=== PATIENT | female | born 1975 | race Caucasian/White ===

== ENCOUNTER 2020-10-06 14:20 | Inpatient (IN) ==
[2020-10-06] MEDS ORDERED: SODIUM CHLORIDE 0.9% 1,000 ML IV STA (17:24)
[2020-10-06] MEDS ORDERED: MORPHINE 4 MG/1 ML VIAL IV ONE ×2 (17:27→21:21)
[2020-10-06] MEDS ORDERED: ONDANSETRON 4 MG/2 ML VIAL IV STA ×3 (17:27→21:21)
[2020-10-06] MEDS ORDERED: PANTOPRAZOLE 40 MG VIAL IV STA (17:28)
[2020-10-06 19:03] LABS: Basophils # 0.1 10*3/uL (0.0-0.2); Basophils % 0.3 % (0.0-0.8); Eosinophils # 0.1 10*3/uL (0.0-0.87); Eosinophils % 0.3 % (0.00-10.9); Hematocrit 43.2 VOL% (35.7-47.0); Hemoglobin 15.1 GM/DL (12.0-16.0); Immature Granulocytes % 0.3 %; Immature Granulocytes Absolute 0.05 #; Lymphocytes # 1.3 10*3/uL (1.4-4.0); Lymphocytes % 7.9 % (21.3-54.2); Mean Corpuscular Volume 86.1 FL (87-102); Neutrophils % 88.2 % (38.7-73.9); Platelet Count 258 T/CUMM (130-400); Red Blood Count 5.02 MC/CUMM (3.8-5.5); Red Cell Distribution Width 12.2 % (9.3-17.3); White Blood Count 16.8 T/CUMM (4-12)
[2020-10-06 19:18] LABS: INR 1.1; PT Patient Result 11.4 SECS (9.8-11.9)
[2020-10-06 19:24] LABS: Albumin 3.7 G/DL (3.4-5.0); Bilirubin,Total 0.5 MG/DL (0.2-1.0); Calcium 8.9 MG/DL (8.5-10.1); Total Protein 8.1 G/DL (6.4-8.3)
[2020-10-06 20:20] LABS: Bacteria,Urine Occasional /HPF (Few); Bilirubin,Urine Negative (Negative); Blood, Urine Negative (Negative); Glucose,Urine (UA) Negative (Negative); Ketones,Urine 20 mg/dL (Negative); Mucus,Urine Occasional /LPF (Occasional); Nitrite,Urine Positive (Negative); Protein,Urine Negative; RBC,Urine 14 /HPF (0-4); Squamous Epithelial Cell,Urine Few /HPF (0-10); Urine Appearance CLEAR (Clear); Urine Color Yellow (Yellow); Urine Specific Gravity > 1.060 (1.001-1.035); Urine Urobilinogen < 2.0 EU/DL (0.2-1.0); WBC,Urine 15 /HPF (0-6)
[2020-10-06] MEDS ORDERED: DEXTROSE 50% 25 GM/50 ML VIAL IV PRN (21:23)
[2020-10-06] MEDS ORDERED: ACETAMINOPHEN 325 MG TABLET PO PRN (21:23)
[2020-10-06] MEDS ORDERED: GLUCAGON 1 MG VIAL IM PRN (21:23)
[2020-10-06] MEDS ORDERED: HYDROmorphone 2 MG/1 ML VIAL IV PRN (21:31)
[2020-10-06] MEDS: CIPROFLOXACIN INJ 400 MG in PREMIX 1 EACH IV SCH (22:44)
[2020-10-06] MEDS: SODIUM CHLORIDE 0.9% 1,000 ML IV SCH (22:44)
[2020-10-06 23:40] LABS: Hematocrit 36.9 VOL% (35.7-47.0); Hemoglobin 12.9 GM/DL (12.0-16.0)
[2020-10-07] MEDS: ONDANSETRON 4 MG/2 ML VIAL IV PRN ×6 (00:07→20:59)
[2020-10-07] MEDS: metroNIDAZOLE INJ 500 MG in PREMIX 1 EACH IV SCH ×3 (00:11→16:09)
[2020-10-07 05:56] LABS: Basophils % 0.3 % (0.0-0.8); Eosinophils # 0.1 10*3/uL (0.0-0.87); Eosinophils % 1.4 % (0.00-10.9); Hematocrit 33.4 VOL% (35.7-47.0); Hemoglobin 11.4 GM/DL (12.0-16.0); Immature Granulocytes % 0.3 %; Immature Granulocytes Absolute 0.03 #; Lymphocytes # 1.8 10*3/uL (1.4-4.0); Lymphocytes % 18.4 % (21.3-54.2); Mean Corpuscular HGB Conc 34.1 GM/DL (32-36); Mean Corpuscular Volume 87.9 FL (87-102); Mean Platelet Volume 10.1 FL (9.6-12.0); Monocytes % 5.9 % (1.7-12.7); Neutrophils % 73.7 % (38.7-73.9); Platelet Count 216 T/CUMM (130-400); Red Cell Distribution Width 12.1 % (9.3-17.3); White Blood Count 9.6 T/CUMM (4-12)
[2020-10-07 05:56] LABS: Hematocrit 34.4 VOL% (35.7-47.0); Hemoglobin 11.5 GM/DL (12.0-16.0)
[2020-10-07 06:30] LABS: Albumin 2.8 G/DL (3.4-5.0); Bilirubin,Total 0.6 MG/DL (0.2-1.0); Calcium 7.7 MG/DL (8.5-10.1); Osmolality,Calculated 271.7 MOS/KG (273-304); Total Protein 6.1 G/DL (6.4-8.3)
[2020-10-07] MEDS: PANTOPRAZOLE 40 MG VIAL IV SCH ×2 (08:15→20:59)
[2020-10-07] MEDS: SODIUM CHLORIDE 0.9% 1,000 ML IV SCH ×3 (08:16→22:30)
[2020-10-07] MEDS: CIPROFLOXACIN INJ 400 MG in PREMIX 1 EACH IV SCH ×2 (09:32→22:30)
[2020-10-07 10:34] LABS: Hematocrit 31.8 VOL% (35.7-47.0); Hemoglobin 11.2 GM/DL (12.0-16.0)
[2020-10-07 15:22] LABS: Hematocrit 33.6 VOL% (35.7-47.0); Hemoglobin 11.5 GM/DL (12.0-16.0)
[2020-10-07] MEDS ORDERED: POTASSIUM CHLORIDE 8 MEQ CAPSULE PO ONE (17:36)
[2020-10-08] MEDS: ONDANSETRON 4 MG/2 ML VIAL IV PRN ×4 (00:33→13:21)
[2020-10-08] MEDS: metroNIDAZOLE INJ 500 MG in PREMIX 1 EACH IV SCH ×2 (00:33→09:18)
[2020-10-08] MEDS: SODIUM CHLORIDE 0.9% 1,000 ML IV SCH ×2 (05:49→09:15)
[2020-10-08 07:10] LABS: Basophils % 0.6 % (0.0-0.8); Eosinophils # 0.1 10*3/uL (0.0-0.87); Eosinophils % 2.1 % (0.00-10.9); Hematocrit 31.7 VOL% (35.7-47.0); Hemoglobin 10.9 GM/DL (12.0-16.0); Immature Granulocytes % 0.2 %; Immature Granulocytes Absolute 0.01 #; Lymphocytes # 1.9 10*3/uL (1.4-4.0); Lymphocytes % 36.1 % (21.3-54.2); Mean Corpuscular HGB Conc 34.4 GM/DL (32-36); Mean Corpuscular Volume 85.4 FL (87-102); Mean Platelet Volume 10.3 FL (9.6-12.0); Monocytes % 10.1 % (1.7-12.7); Neutrophils % 50.9 % (38.7-73.9); Platelet Count 213 T/CUMM (130-400); Red Blood Count 3.71 MC/CUMM (3.8-5.5); White Blood Count 5.3 T/CUMM (4-12)
[2020-10-08 07:43] LABS: Albumin 2.7 G/DL (3.4-5.0); Bilirubin,Total 0.6 MG/DL (0.2-1.0); Osmolality,Calculated 275.4 MOS/KG (273-304); Total Protein 5.8 G/DL (6.4-8.3)
[2020-10-08] MEDS ORDERED: POTASSIUM CHLORIDE 20 MEQ TABLET PO ONE (09:10)
[2020-10-08] MEDS: PANTOPRAZOLE 40 MG VIAL IV SCH (09:17)
[2020-10-08 11:16] VITALS: BP 144/82
[2020-10-08] MEDS: CIPROFLOXACIN INJ 400 MG in PREMIX 1 EACH IV SCH (13:22)
[2020-10-10] MEDS ORDERED: LACTATED RINGERS 1,000 ML IV SCH (12:30)
== END 2020-10-08 14:33 | disposition home or self-care (01) | DRG 392 ==
LOC: N.ED 14:20 → N.EDINP 21:00 → N.3E 22:21
PROVIDERS: ADMIT Internal Medicine; ATTEND Internal Medicine